=== PATIENT | male | born 1950 | race Caucasian/White ===

== ENCOUNTER 2016-12-11 14:03 | Inpatient (IN) | payer MEDICARE ==
[~2016-12-11] VITALS: Ht 185.4 cm; Wt 98.9 kg
[2016-12-11 14:50] LABS: APPEARANCE,URINE Clear (CLEAR); BILIRUBIN,URINE Negative (NEGATIVE); BLOOD, URINE Negative Ery/uL (NEGATIVE); COLOR,URINE Yellow (YELLOW); KETONES,URINE Negative (NEGATIVE); LEUKOCYTE ESTERASE ,URINE Trace (NEGATIVE); NITRITE, URINE Negative (NEGATIVE); PH,URINE 6.5 (5.0-8.0); PROTEIN,URINE Negative (NEGATIVE); UGLUCOSE Negative (NEGATIVE); UROBILINOGEN,URINE 0.2 EU/dL (0.2)
[2016-12-11 14:52] LABS: BASOPHILS % (AUTO) 0.3 % (0.0-2.0); EOSINOPHILS # (AUTO) 0.1 /CMM (0.0-0.7); EOSINOPHILS % (AUTO) 1.6 % (0.0-6.0); HEMATOCRIT 30 % (39-51); HEMOGLOBIN 9.7 g/dL (13.5-17.5); LYMPHOCYTES # (AUTO) 0.8 /CMM (0.8-4.8); LYMPHOCYTES % (AUTO) 15.5 % (20.0-44.0); MEAN CORPUSCULAR HEMOGLOBIN 28 PG (26.0-33.0); MEAN CORPUSCULAR HGB CONC 33 g/dl (31.0-36.0); MEAN CORPUSCULAR VOLUME 85 fL (80-96); MONOCYTES # (AUTO) 0.5 /CMM (0.1-1.30); MONOCYTES % (AUTO) 8.3 % (2.0-12.0); NEUTROPHILS # (AUTO) 4.1 /CMM (1.8-8.9); NEUTROPHILS % (AUTO) 74.3 % (43.0-81.0); PLATELET COUNT (AUTO) 359 /CMM (150-450); RDW COEFFICIENT OF VARIATION 14.3 (11.5-15.0); RED BLOOD CELL COUNT(AUTO) 3.47 MIL/uL (4.5-6.0); WHITE BLOOD COUNT (AUTO) 5.5 K/uL (4.3-11.0)
[2016-12-11 15:01] LABS: CALCIUM, SERUM 8.7 mg/dL (8.5-10.1); CARBON DIOXIDE 29 mmol/L (21-32); CHLORIDE 107 mmol/L (98-107); CREATININE 1.3 mg/dL (0.6-1.3); GFR 55 mL/min (>60); GLUCOSE 113 mg/dL (74-106); POTASSIUM 3.9 mmol/L (3.5-5.1); SODIUM SERUM 143 mmol/L (136-145); UREA NITROGEN, BLOOD 22 mg/dL (7-18)
[2016-12-11 15:02] LABS: ADD URINE CULTURE NO; BACTERIA,URINE Rare /HPF (None Seen); RBC,URINE 0-2 /HPF (0-2); SQUAMOUS EPITHELIAL CELL,UR Few /HPF (None Seen)
[2016-12-11 15:03] LABS: CANNABINOID, URINE NEGATIVE (NEGATIVE); PHENCYCLIDINE SCREEN,URINE NEGATIVE (NEGATIVE)
[2016-12-11 15:07] LABS: ALANINE AMINOTRANSFERASE 29 U/L (12-78); ALBUMIN 3.8 g/dL (3.4-5.0); ALCOHOL, BLOOD < 3 mg/dL (0-0); ALKALINE PHOSPHATASE 58 U/L (46-116); ASPARTATE AMINOTRANSFERASE 20 U/L (15-37); BILIRUBIN,TOTAL 0.1 mg/dL (0.2-1.0); TOTAL PROTEIN, SERUM 6.3 g/dL (6.4-8.2)
[2016-12-11 15:10] LABS: ACETAMINOPHEN 0 ug/ml (10-30); SALICYLATE 1.6 mg/dL (2.8-20.0)
[2016-12-11] MEDS ORDERED: ACETAMINOPHEN 325 MG TABLET PO PRN (16:30)
[2016-12-11] MEDS ORDERED: LORAZEPAM 0.5 MG TABLET PO PRN (16:30)
[2016-12-11] MEDS ORDERED: MAG HYDROX/AL HYDROX/SIMETH 30 ML UDC PO PRN (16:30)
[2016-12-11] MEDS ORDERED: MAGNESIUM HYDROXIDE 30 ML UDC PO PRN (16:30)
[2016-12-11] MEDS ORDERED: AMIT100T2 PO (17:10)
[2016-12-11] MEDS ORDERED: QUET100T PO (17:10)
[2016-12-11] MEDS ORDERED: DIAZ10TA4 PO (17:10)
[2016-12-11] MEDS ORDERED: ATEN50TA PO (17:10)
[2016-12-11] MEDS: risperiDONE 1 MG TABLET PO SCH (18:29)
[2016-12-11 20:00] VITALS: BP 155/94
[2016-12-11] MEDS: AMITRIPTYLINE HCL 25 MG TABLET PO SCH (21:06)
[2016-12-11] MEDS ORDERED: AMITRIPTYLINE HCL 25 MG TABLET PO SCH (22:00)
[2016-12-12 07:55] LABS: ALBUMIN 3.9 g/dL (3.4-5.0); BILIRUBIN,TOTAL 0.2 mg/dL (0.2-1.0); CREATININE 1.4 mg/dL (0.6-1.3); TOTAL PROTEIN, SERUM 6.5 g/dL (6.4-8.2)
[2016-12-12 08:07] VITALS: BP 147/92
[2016-12-12] MEDS: risperiDONE 1 MG TABLET PO SCH ×2 (08:45→16:43)
[2016-12-12 16:01] VITALS: BP 150/80
[2016-12-12 20:00] VITALS: BP 157/81
[2016-12-12] MEDS ORDERED: INSULIN REGULAR, HUMAN 100 UNIT/ML 3 ML VIAL SQ PRN (21:00)
[2016-12-12] MEDS ORDERED: *INSULIN REGULAR(HUMULIN R)HUM 100 UNIT/ML VIAL SQ PRN (21:00)
[2016-12-12] MEDS ORDERED: DEXTROSE 50%-WATER 50 ML DISP.SYRIN IV PRN (21:00)
[2016-12-12] MEDS: ZOLPIDEM TARTRATE 5 MG TABLET PO PRN (21:27)
[2016-12-12] MEDS: AMITRIPTYLINE HCL 25 MG TABLET PO SCH (21:27)
[2016-12-12] MEDS ORDERED: BLOOD SUGAR DIAGNOSTIC 1 EACH STRIP VI SCH (22:00)
[2016-12-13 08:27] VITALS: BP 159/82
[2016-12-13 08:41] LABS: EOSINOPHILS # (AUTO) 0.1 /CMM (0.0-0.7); EOSINOPHILS % (AUTO) 0.9 % (0.0-6.0); HEMATOCRIT 33 % (39-51); HEMOGLOBIN 10.4 g/dL (13.5-17.5); LYMPHOCYTES # (AUTO) 0.6 /CMM (0.8-4.8); LYMPHOCYTES % (AUTO) 10.9 % (20.0-44.0); MEAN CORPUSCULAR HEMOGLOBIN 27 PG (26.0-33.0); MEAN CORPUSCULAR HGB CONC 32 g/dl (31.0-36.0); MEAN CORPUSCULAR VOLUME 86 fL (80-96); MONOCYTES # (AUTO) 0.4 /CMM (0.1-1.30); MONOCYTES % (AUTO) 7.2 % (2.0-12.0); NEUTROPHILS # (AUTO) 4.5 /CMM (1.8-8.9); PLATELET COUNT (AUTO) 385 /CMM (150-450); RDW COEFFICIENT OF VARIATION 15.5 (11.5-15.0); WHITE BLOOD COUNT (AUTO) 5.6 K/uL (4.3-11.0)
[2016-12-13] MEDS: risperiDONE 1 MG TABLET PO SCH ×2 (08:44→16:30)
[2016-12-13] MEDS: ATENOLOL 50 MG TABLET PO SCH (08:45)
[2016-12-13 08:49] LABS: BILIRUBIN,TOTAL 0.2 mg/dL (0.2-1.0); CALCIUM, SERUM 9.3 mg/dL (8.5-10.1); CREATININE 1.4 mg/dL (0.6-1.3); TOTAL PROTEIN, SERUM 6.6 g/dL (6.4-8.2)
[2016-12-13 08:51] LABS: C-REACTIVE PROTEIN 0.2 mg/dL (0.0-0.9)
[2016-12-13] MEDS ORDERED: IOHEXOL-300 100 ML VIAL IV ONE (11:19)
[2016-12-13] MEDS ORDERED: CT SWABBABLE VALVE TRANS SET 1 EA INFUS.SET MC ONE (11:19)
[2016-12-13] MEDS ORDERED: IV NS 0.9% 250 ML IV ONE (11:19)
[2016-12-13 16:15] VITALS: BP 158/86
[2016-12-13 20:00] VITALS: BP 146/87
[2016-12-13] MEDS: AMITRIPTYLINE HCL 25 MG TABLET PO SCH (21:32)
[2016-12-14 07:42] LABS: BASOPHILS % (AUTO) 0.3 % (0.0-2.0); EOSINOPHILS # (AUTO) 0.1 /CMM (0.0-0.7); EOSINOPHILS % (AUTO) 1.4 % (0.0-6.0); HEMATOCRIT 31 % (39-51); LYMPHOCYTES # (AUTO) 0.8 /CMM (0.8-4.8); LYMPHOCYTES % (AUTO) 13.2 % (20.0-44.0); MEAN CORPUSCULAR HEMOGLOBIN 27 PG (26.0-33.0); MEAN CORPUSCULAR HGB CONC 32 g/dl (31.0-36.0); MEAN CORPUSCULAR VOLUME 86 fL (80-96); MONOCYTES # (AUTO) 0.6 /CMM (0.1-1.30); MONOCYTES % (AUTO) 10.2 % (2.0-12.0); NEUTROPHILS # (AUTO) 4.5 /CMM (1.8-8.9); NEUTROPHILS % (AUTO) 74.9 % (43.0-81.0); PLATELET COUNT (AUTO) 360 /CMM (150-450); RDW COEFFICIENT OF VARIATION 15.2 (11.5-15.0); RED BLOOD CELL COUNT(AUTO) 3.65 MIL/uL (4.5-6.0)
[2016-12-14 07:46] LABS: CALCIUM, SERUM 8.8 mg/dL (8.5-10.1); CREATININE 1.2 mg/dL (0.6-1.3); MAGNESIUM 1.6 mg/dL (1.8-2.4); PHOSPHORUS 3.5 mg/dL (2.5-4.9); POTASSIUM 3.6 mmol/L (3.5-5.1)
[2016-12-14 08:00] VITALS: BP 150/89
[2016-12-14] MEDS: AMLODIPINE BESYLATE 5 MG TABLET PO SCH (08:27)
[2016-12-14] MEDS: ATENOLOL 50 MG TABLET PO SCH (08:27)
[2016-12-14] MEDS: risperiDONE 1 MG TABLET PO SCH ×2 (08:28→17:41)
[2016-12-14 10:16] LABS: *RAPID PLASMA REAGIN QUAL Non Reactive (Non Reactive)
[2016-12-14 16:00] VITALS: BP 131/72
[2016-12-14 20:14] VITALS: BP 146/79
[2016-12-14] MEDS: AMITRIPTYLINE HCL 25 MG TABLET PO SCH (22:18)
[2016-12-14] MEDS: ZOLPIDEM TARTRATE 5 MG TABLET PO PRN (23:08)
[2016-12-15 08:00] VITALS: BP 152/89
[2016-12-15] MEDS: ATENOLOL 50 MG TABLET PO SCH (09:27)
[2016-12-15] MEDS: risperiDONE 1 MG TABLET PO SCH ×2 (09:27→18:06)
[2016-12-15] MEDS: AMLODIPINE BESYLATE 5 MG TABLET PO SCH (09:27)
[2016-12-15 16:00] VITALS: BP 126/70
[2016-12-15] MEDS: MAGNESIUM OXIDE 400 MG TABLET PO SCH ×2 (18:07→21:46)
[2016-12-15 20:00] VITALS: BP 135/75
[2016-12-15] MEDS: AMITRIPTYLINE HCL 25 MG TABLET PO SCH (21:45)
[2016-12-15] MEDS: ZOLPIDEM TARTRATE 5 MG TABLET PO PRN (22:47)
[2016-12-16 08:00] VITALS: BP 148/85
[2016-12-16] MEDS: AMLODIPINE BESYLATE 5 MG TABLET PO SCH (08:34)
[2016-12-16] MEDS: risperiDONE 1 MG TABLET PO SCH ×2 (08:35→17:27)
[2016-12-16] MEDS: ATENOLOL 50 MG TABLET PO SCH (08:35)
[2016-12-16 09:11] LABS: CALCIUM, SERUM 8.8 mg/dL (8.5-10.1); CREATININE 1.3 mg/dL (0.6-1.3); MAGNESIUM 1.9 mg/dL (1.8-2.4); POTASSIUM 3.8 mmol/L (3.5-5.1)
[2016-12-16 16:00] VITALS: BP 135/76
[2016-12-16 20:00] VITALS: BP 157/82
[2016-12-16 20:16] VITALS: BP 100/53
[2016-12-16] MEDS: MAGNESIUM OXIDE 400 MG TABLET PO SCH (21:43)
[2016-12-16] MEDS: AMITRIPTYLINE HCL 25 MG TABLET PO SCH (21:44)
[2016-12-16 23:05] VITALS: BP 100/53
[2016-12-16] MEDS: ZOLPIDEM TARTRATE 5 MG TABLET PO PRN (23:14)
[2016-12-17] MEDS: ATENOLOL 50 MG TABLET PO SCH (08:07)
[2016-12-17] MEDS: AMLODIPINE BESYLATE 5 MG TABLET PO SCH (08:08)
[2016-12-17] MEDS: risperiDONE 1 MG TABLET PO SCH ×2 (08:10→19:04)
[2016-12-17 09:19] VITALS: BP 136/65
[2016-12-17 16:30] VITALS: BP 108/65
[2016-12-17 20:02] VITALS: BP 152/87
[2016-12-17] MEDS: MAGNESIUM OXIDE 400 MG TABLET PO SCH (21:02)
[2016-12-17] MEDS: AMITRIPTYLINE HCL 25 MG TABLET PO SCH (21:02)
[2016-12-17] MEDS: ZOLPIDEM TARTRATE 5 MG TABLET PO PRN (22:12)
[2016-12-18 08:00] VITALS: BP 136/77
[2016-12-18] MEDS: risperiDONE 1 MG TABLET PO SCH ×2 (08:31→16:47)
[2016-12-18] MEDS: AMLODIPINE BESYLATE 5 MG TABLET PO SCH (08:32)
[2016-12-18] MEDS: ATENOLOL 50 MG TABLET PO SCH (08:32)
[2016-12-18 15:55] VITALS: BP 135/67
[2016-12-18 20:00] VITALS: BP 128/75
[2016-12-18] MEDS: MAGNESIUM OXIDE 400 MG TABLET PO SCH (20:58)
[2016-12-18] MEDS: AMITRIPTYLINE HCL 25 MG TABLET PO SCH (20:59)
[2016-12-19 08:00] VITALS: BP 121/77
[2016-12-19] MEDS: AMLODIPINE BESYLATE 5 MG TABLET PO SCH (08:19)
[2016-12-19 08:20] VITALS: BP 121/77
[2016-12-19] MEDS: risperiDONE 1 MG TABLET PO SCH (08:20)
[2016-12-19] MEDS: ATENOLOL 50 MG TABLET PO SCH (08:20)
[2016-12-19 08:42] VITALS: BP 121/77
[2016-12-19 08:56] LABS: CREATININE 1.2 mg/dL (0.6-1.3); MAGNESIUM 1.9 mg/dL (1.8-2.4); POTASSIUM 4.2 mmol/L (3.5-5.1)
== END 2016-12-19 15:20 | DRG 885 ==
LOC: ER 14:07 → GPS 15:41
PROVIDERS: ADMIT Psychiatry & Neurology Psychiatry; ATTEND Internal Medicine
DX: F29 Unspecified psychosis not due to a substance or known physiological condition (principal); N17.0 Acute kidney failure with tubular necrosis; I10 Essential (primary) hypertension; F20.0 Paranoid schizophrenia; K21.9 Gastro-esophageal reflux disease without esophagitis; F32.9 Major depressive disorder, single episode, unspecified; F41.9 Anxiety disorder, unspecified; E78.5 Hyperlipidemia, unspecified; D63.8 Anemia in other chronic diseases classified elsewhere; I65.23 Occlusion and stenosis of bilateral carotid arteries
CPT/HCPCS: 36415; 70470-TC; 80048-TC; 80053-TC; 80061-TC; 80076-TC; 80305; 81000-TC; 82140-TC; 82746; 83735-TC; 84100-TC; 85025-TC; 85652-TC; 86140-TC; 86592; 87081-TC; 93880-TC; A4606; G0480; G6039-TC; J1815; J7050; Q9967; Z7610